=== PATIENT | female | born 1990 | race Caucasian/White ===

== ENCOUNTER 2018-05-21 13:35 | Inpatient (IN) | payer OTHER ==
[~2018-05-21] VITALS: Ht 154.9 cm; Wt 80.3 kg
[2018-10-14] MEDS ORDERED: OXYTOCIN 30 UNITS/LACT RINGERS 500 ML IV ONE (16:31)
[2018-10-14] MEDS ORDERED: RINGERS SOLUTION,LACTATED 1,000 ML IV PRN (16:31)
[2018-10-14] MEDS ORDERED: PREN-217 PO (16:40)
[2018-10-14 16:42] VITALS: BP 112/62
[2018-10-14] MEDS ORDERED: FentaNYL CITRATE-PF 100 MCG/2 ML VIAL IVP PRN (16:45)
[2018-10-14] MEDS ORDERED: CITRIC ACID/SODIUM CITRATE 30 ML SOLUTION UDCUP PO PRN (16:45)
[2018-10-14] MEDS ORDERED: METHYLERGONOVINE MALEATE 0.2 MG/ML VIAL IM PRN (16:45)
[2018-10-14] MEDS ORDERED: DINOPROSTONE 10 MG VAGINAL SUPPOSITORY VG ONE (16:45)
[2018-10-14] MEDS ORDERED: METOCLOPRAMIDE HCL 5 MG/ML 2 ML VIAL IVP PRN (16:45)
[2018-10-14] MEDS: RINGERS SOLUTION,LACTATED 1,000 ML IV SCH ×2 (17:19→23:08)
[2018-10-14 17:35] LABS: BASOPHILS % (AUTO) 0.9 % (0.0-2.0); EOSINOPHILS % (AUTO) 0.7 % (1.0-6.0); HEMATOCRIT 34.6 % (36-46); HEMOGLOBIN 11.1 g/dL (12.0-16.0); LYMPHOCYTES # (AUTO) 2.5 K/uL (1.0-4.8); MEAN CORPUSCULAR HEMOGLOBIN 28.8 pg (26.0-34.0); MEAN CORPUSCULAR HGB CONC 32.2 G/dL (31.0-37.0); MEAN CORPUSCULAR VOLUME 89 fL (80-100); MONOCYTES # (AUTO) 0.6 K/uL (0.1-1.0); MONOCYTES % (AUTO) 4.5 % (2.0-9.0); NEUTROPHILS # (AUTO) 9.8 K/uL (1.8-7.7); NEUTROPHILS % (AUTO) 74.9 % (40.0-70.0); PLATELET COUNT (AUTO) 295 K/uL (150-450); RED BLOOD CELL COUNT(AUTO) 3.87 MIL/uL (4.00-5.20); RED CELL DISTRIBUTION WIDTH 14.6 % (11.5-14.5)
[2018-10-14] MEDS ORDERED: OXYGEN THERAPY IH SCH (20:00)
[2018-10-15] MEDS ORDERED: MISOPROSTOL 50 MCG TABLET PO ONE (06:00)
[2018-10-15] MEDS: RINGERS SOLUTION,LACTATED 1,000 ML IV SCH ×2 (06:04→14:00)
[2018-10-15] MEDS ORDERED: OXYTOCIN 30 UNITS/LACT RINGERS 500 ML IV PRN ×2 (10:20→10:25)
[2018-10-15] MEDS ORDERED: ROPIVACAINE HCL/PF 0.2% 100 ML ED ONE (19:55)
[2018-10-15] MEDS: AMPICILLIN SODIUM 2 GM/NS 100 ML IV SCH (21:16)
[2018-10-15] MEDS ORDERED: ROPIVACAINE HCL/PF 0.2% 100 ML ED PRN (21:39)
[2018-10-15] MEDS ORDERED: ONDANSETRON HCL 4 MG/2 ML VIAL IVP PRN (21:45)
[2018-10-15] MEDS ORDERED: NALBUPHINE HCL 10 MG/ML VIAL IVP PRN (21:45)
[2018-10-15] MEDS ORDERED: DiphenhydrAMINE HCL 50 MG/ML VIAL IVP PRN (21:45)
[2018-10-16] MEDS: RINGERS SOLUTION,LACTATED 1,000 ML IV SCH ×5 (00:27→12:25)
[2018-10-16] MEDS: AMPICILLIN SODIUM 2 GM/NS 100 ML IV SCH ×3 (00:53→09:03)
[2018-10-16] MEDS ORDERED: MORPHINE SULFATE/PF 0.5 MG/ML 10 ML AMP ONE (11:02)
[2018-10-16] MEDS ORDERED: FentaNYL CITRATE-PF 100 MCG/2 ML VIAL ONE (11:02)
[2018-10-16] MEDS ORDERED: ACETAMINOPHEN 1000 MG/ISO-OSM 100 ML IV ONE (11:03)
[2018-10-16] MEDS ORDERED: LIDOCAINE/PF 2% 5 ML VIAL ONE (11:03)
[2018-10-16] MEDS ORDERED: ONDANSETRON HCL 4 MG/2 ML VIAL IVP PRN (11:30)
[2018-10-16] MEDS ORDERED: DiphenhydrAMINE HCL 50 MG/ML VIAL IVP PRN (11:30)
[2018-10-16] MEDS ORDERED: NALBUPHINE HCL 10 MG/ML VIAL IVP PRN (11:30)
[2018-10-16] MEDS ORDERED: FentaNYL CITRATE-PF 100 MCG/2 ML VIAL IVP PRN (11:30)
[2018-10-16] MEDS ORDERED: DEXAMETHASONE SOD PHOS 4 MG/ML VIAL IVP PRN (11:30)
[2018-10-16] MEDS ORDERED: ACETAMINOPHEN/CODEINE 300-30 MG TABLET PO PRN ×3 (12:00→14:00)
[2018-10-16] MEDS ORDERED: LANOLIN 7 GM OINTMENT TP PRN ×2 (12:00→14:00)
[2018-10-16] MEDS: MEPERIDINE-PF 25 MG/ML VIAL IVP PRN ×2 (12:15→12:29)
[2018-10-16] MEDS ORDERED: RINGERS SOLUTION,LACTATED 1,000 ML IV ONE (12:16)
[2018-10-16] MEDS ORDERED: DEXTROSE 5%-0.45% SODIUM CHL 1,000 ML IV SCH (13:58)
[2018-10-16] MEDS: DEXTROSE 5%-0.45% SODIUM CHL 1,000 ML IV SCH ×3 (14:44→22:55)
[2018-10-16] MEDS ORDERED: ACETAMINOPHEN 1000 MG/ISO-OSM 100 ML IV SCH ×2 (16:00→19:30)
[2018-10-16] MEDS ORDERED: IBUPROFEN 800 MG TABLET PO SCH (18:00)
[2018-10-16] MEDS ORDERED: MAGNESIUM HYDROXIDE SUSPENSION 30 ML UDCUP PO SCH (21:00)
[2018-10-16] MEDS: MAGNESIUM HYDROXIDE SUSPENSION 30 ML UDCUP PO SCH (21:39)
[2018-10-17] MEDS: IBUPROFEN 800 MG TABLET PO SCH ×4 (05:05→22:54)
[2018-10-17] MEDS ORDERED: 0.9% SODIUM CHLORIDE 10 ML VIAL IVP ONE (05:21)
[2018-10-17] MEDS ORDERED: OXYTOCIN 10 UNITS/ML VIAL IM ONE (05:21)
[2018-10-17] MEDS: MAGNESIUM HYDROXIDE SUSPENSION 30 ML UDCUP PO SCH ×2 (08:16→20:07)
[2018-10-17] MEDS: ACETAMINOPHEN/CODEINE 300-30 MG TABLET PO PRN ×2 (09:00→15:31)
[2018-10-18] MEDS: IBUPROFEN 800 MG TABLET PO SCH ×4 (04:55→22:38)
[2018-10-18] MEDS: MAGNESIUM HYDROXIDE SUSPENSION 30 ML UDCUP PO SCH ×2 (08:26→20:24)
[2018-10-19] MEDS: IBUPROFEN 800 MG TABLET PO SCH ×2 (04:41→13:12)
[2018-10-19] MEDS ORDERED: IBUP-2071 PO (09:58)
== END 2018-10-19 14:00 | disposition home or self-care (01) | DRG 788 ==
LOC: 4S 10-14 15:10 → OBSVTOIN 10-14 15:10 → 4S 10-16 11:30
PROVIDERS: ADMIT Obstetrics & Gynecology; ATTEND Obstetrics & Gynecology
PROC: 10D00Z1 Extraction of Products of Conception, Low, Open Approach (ICD-10-PCS; principal; 2018-10-16)
DX: O77.0 Labor and delivery complicated by meconium in amniotic fluid (principal); O69.81X0 Labor and delivery complicated by cord around neck, without compression, not applicable or unspecified; O62.0 Primary inadequate contractions; Z3A.40 40 weeks gestation of pregnancy; Z37.0 Single live birth
CPT/HCPCS: 86850; 86900; 86901; 87081; J0131; J0290; J0690; J2175; J2274; J2590; J2765; J2795; J3010; J3490; J7120